=== PATIENT | male | born 1980 | race Caucasian/White ===

== ENCOUNTER 2016-11-05 10:34 | Outpatient (CLI) | payer OTHER ==
[~2016-11-05] VITALS: Ht 188 cm; Wt 100.7 kg
[~2016-11-05 10:34] MED LIST: LIPI10TA PO; PRIL20CA9 PO
[2016-11-05] MEDS ORDERED: NS 1,000 ML IV ONE (11:00)
[2016-11-05] MEDS ORDERED: PROPOFOL 500 MG/50 ML VIAL As Ordered ONE (11:20)
[2016-11-05] MEDS ORDERED: LIDOCAINE 2% INJ 100 MG/5 ML SDV (FOR ANES.) As Ordered ONE (11:20)
--- NOTE | 2016-11-05 11:42 | ROOR ---
Patient Name: Fred Gudino Procedure Date: 11/05/2016 11:20 AM Date of : 1980 Age: 36 Room: [facility] Gender: Male Note Status: Finalized Procedure: Upper Endoscopy + Biopsies Indications: Heartburn, Exclusion of Acevedo's esophagus Providers: Ravindra Carcamo MD Referring MD: Fred Forrest Md Requesting Provider: Medicines: Monitored Anesthesia Care Complications: No immediate complications. Procedure: Pre-Anesthesia Assessment: - The heart rate, respiratory rate, oxygen saturations, blood pressure, adequacy of pulmonary ventilation, and response to care were monitored throughout the procedure. The Endoscope was introduced through the mouth, and advanced to the second part of duodenum. The upper GI endoscopy was accomplished without difficulty. The patient tolerated the procedure well. Findings: The Z-line was irregular and was found 35 cm from the incisors. Multiple biopsies were obtained with cold forceps for evaluation to rule out Acevedo's Esophagus randomly at the gastroesophageal junction. A medium-sized hiatal hernia was present. Multiple localized, medium non-bleeding erosions were found in the gastric antrum. There were no stigmata of recent bleeding. Biopsies were taken with a cold forceps for Helicobacter pylori testing. The exam was otherwise without abnormality. Impression: - Z-line irregular, 35 cm from the incisors. - Medium-sized hiatal hernia. - Non-bleeding erosive gastropathy. Biopsied. - Multiple biopsies were obtained at the gastroesophageal junction. - The examination was otherwise normal. Recommendation: - Patient has a contact number available for emergencies. The signs and symptoms of potential delayed complications were discussed with the patient. Return to normal activities tomorrow. Written discharge instructions were provided to the patient. - High fiber diet. - Discharge patient to home. - Follow an antireflux regimen. - Continue present medications. - Await pathology results. - Telephone GI clinic for pathology results in 1 week. - Return to referring physician. - The findings and recommendations were discussed with the patient's family. Ravindra Carcamo MD Ravindra Carcamo MD 11/05/2016 11:42:07 AM This report has been signed electronically. Number of Addenda: 0 Note Initiated On: 11/05/2016 11:20 AM Estimated Blood Loss: Estimated blood loss: none.
[2016-11-05 12:09] VITALS: BP 129/76
== END 2016-11-05 12:11 | disposition home or self-care (01) ==
LOC: M OPP 10:34
PROVIDERS: ATTEND Internal Medicine Gastroenterology
DX: R12 Heartburn (principal); R10.13 Epigastric pain; K22.8 Other specified diseases of esophagus; K44.9 Diaphragmatic hernia without obstruction or gangrene; K31.89 Other diseases of stomach and duodenum; K21.9 Gastro-esophageal reflux disease without esophagitis; E78.5 Hyperlipidemia, unspecified; F17.210 Nicotine dependence, cigarettes, uncomplicated; Z79.899 Other long term (current) drug therapy